=== PATIENT | female | born 1970 | race Two or more races ===

== ENCOUNTER 2021-02-04 20:25 | Emergency (ER) | payer OTHER ==
[~2021-02-04] VITALS: Ht 160 cm; Wt 81.6 kg
--- NOTE | 2021-02-04 20:41 | NUR ---
Pt bibself c/o anxiety every day. Pt aaox4 breathing evenly and unlabored. Pt states that her "psychiatrist sent her to get medically cleared and go to mental health facility." Pt denies any medical problems at the moment and denies SI/HI. pt attached to monitor and pox. Pt given blanket and call light within reach. Addendum: 02/05/21 at 0854 by CHAITANYA pt amb with a cane to br voided back to bed given breakfast resting quietly
[2021-02-04 21:21] LABS: BASOPHILS # (AUTO) 0.1 K/uL (0.0-0.2); BASOPHILS % (AUTO) 0.7 % (0.0-2.0); EOSINOPHILS % (AUTO) 0.3 % (0.0-6.0); HEMATOCRIT 38 % (33-45); HEMOGLOBIN 12.9 g/dL (11.5-14.8); LYMPHOCYTES # (AUTO) 2.1 K/uL (0.8-4.8); LYMPHOCYTES % (AUTO) 21.8 % (20.0-44.0); MEAN CORPUSCULAR HGB CONC 34 g/dl (31.0-36.0); MEAN CORPUSCULAR VOLUME 84 fL (82-100); MONOCYTES # (AUTO) 0.7 K/uL (0.1-1.30); MONOCYTES % (AUTO) 6.9 % (2.0-12.0); NEUTROPHILS # (AUTO) 6.9 K/uL (1.8-8.9); NEUTROPHILS % (AUTO) 70.3 % (43.0-81.0); PLATELET COUNT (AUTO) 382 K/uL (150-450); RED BLOOD CELL COUNT(AUTO) 4.57 MIL/uL (4.0-5.2); WHITE BLOOD COUNT (AUTO) 9.8 K/uL (4.3-11.0)
[2021-02-04 21:26] LABS: BILIRUBIN,URINE Negative (NEGATIVE); COLOR,URINE YELLOW (YELLOW); LEUKOCYTE ESTERASE ,URINE Negative (NEGATIVE); NITRITE, URINE Negative (NEGATIVE); PROTEIN,URINE Negative (NEGATIVE); UGLUCOSE Negative (NEGATIVE); UROBILINOGEN,URINE 0.2 EU/dL (0.2)
[2021-02-04 21:31] LABS: CARBON DIOXIDE 29 mmol/L (21-32); CHLORIDE 102 mmol/L (98-107); CREATININE 0.7 mg/dL (0.6-1.3); GLUCOSE 110 mg/dL (74-106); POTASSIUM 4.3 mmol/L (3.5-5.1); SODIUM SERUM 137 mmol/L (136-145); UREA NITROGEN, BLOOD 16 mg/dL (7-18)
[2021-02-04 21:36] LABS: ALANINE AMINOTRANSFERASE < 6 U/L (12-78); ALBUMIN 3.8 g/dL (3.4-5.0); ALKALINE PHOSPHATASE 74 U/L (46-116); ASPARTATE AMINOTRANSFERASE 19 U/L (15-37); BILIRUBIN,TOTAL 0.2 mg/dL (0.2-1.0); TOTAL PROTEIN, SERUM 8.3 g/dL (6.4-8.2)
[2021-02-04 21:37] LABS: ACETAMINOPHEN < 10 ug/ml (10-30); ALCOHOL, BLOOD < 2 mg/dL (0-0)
--- NOTE | 2021-02-04 22:45 | NUR ---
covid swab sent to lab
--- NOTE | 2021-02-04 23:00 | NUR ---
pt resting with eyes closed. easily arousable
--- NOTE | 2021-02-05 01:00 | NUR ---
Patient is resting comfortably in bed with eyes closed. Easily aroused. VSS
--- NOTE | 2021-02-05 03:04 | NUR ---
Salma whatley in [facility] - 02/05/21 at 0304 by NATHANIEL CALLED NURSING SUP FOR TELE BED
--- NOTE | 2021-02-05 03:36 | NUR ---
PT ACCEPTED AT [facility] LUU NUMBER FOR REPORT [phone] ERVIN
--- NOTE | 2021-02-05 03:39 | NUR ---
[facility] ETA 0700
--- NOTE | 2021-02-05 03:42 | NUR ---
REPORT GIVEN TO ERVIN JUAN FOR [facility]
[2021-02-05] MEDS ORDERED: ACETAMINOPHEN 325 MG TABLET ONE (04:49)
[2021-02-05] MEDS ORDERED: ACETAMINOPHEN 325 MG TABLET PO ONE (05:00)
--- NOTE | 2021-02-05 07:10 | NUR ---
Gave report to KATHY Monroy
[2021-02-05] MEDS ORDERED: ONDANSETRON HCL/PF 4 MG/2 ML VIAL IV ONE (07:30)
[2021-02-05] MEDS ORDERED: ONDANSETRON HCL/PF 4 MG/2 ML VIAL ONE (07:31)
--- NOTE | 2021-02-05 08:39 | NUR ---
CALLED TRANSPORT NEW ETA 20 MINS.
[2021-02-05] MEDS ORDERED: LORAZEPAM 0.5 MG TABLET PO ONE (09:30)
--- NOTE | 2021-02-05 09:30 | NUR ---
Patient discharged to [facility] in stable condition. Written and verbal after care instructions given. Patient verbalizes understanding of instruction.
[2021-02-05] MEDS ORDERED: LORAZEPAM 0.5 MG TABLET ONE (09:40)
[2021-02-05 10:16] VITALS: BP 128/76
== END 2021-02-05 09:35 ==
LOC: ER 20:36
DX: F41.9 Anxiety disorder, unspecified (principal); Z20.822 Contact with and (suspected) exposure to COVID-19; R03.0 Elevated blood-pressure reading, without diagnosis of hypertension; G89.29 Other chronic pain; M54.2 Cervicalgia
CPT/HCPCS: 36415; 80048; 80076; 80143; 80307; 80320; 81003; 84702; 84703; 85025; 87426; 96374; 99285; C9803; J2405; G0480